=== PATIENT | female | born 2000 | race Caucasian/White ===

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

== ENCOUNTER 2019-06-18 17:55 | Emergency (ER) | payer BC ==
[~2019-06-18] VITALS: Ht 167.6 cm; Wt 50.5 kg
[2019-06-18 17:55] VITALS: BP 130/80
[2019-06-18] MEDS ORDERED: ACETAMINOPHEN 500 MG TAB PO ONE (18:15)
[2019-06-18] MEDS ORDERED: PROZ40CA (19:47)
[2019-06-18 20:33] LABS: INFLUENZA A AMPLIFICATION NEGATIVE (NEGATIVE); INFLUENZA B AMPLIFICATION NEGATIVE (NEGATIVE)
[2019-06-18] MEDS ORDERED: ONDA4TAB6 PO (20:50)
== END 2019-06-18 20:55 | disposition home or self-care (01) ==
LOC: M ED 17:55
DX: K52.9 Noninfective gastroenteritis and colitis, unspecified (principal); E88.9 Metabolic disorder, unspecified; Z79.899 Other long term (current) drug therapy; Z79.3 Long term (current) use of hormonal contraceptives

== ENCOUNTER → 2019-06-25 | Outpatient (REF) | payer BC ==
[~2019-06-25] MED LIST changes: +PROZ40CA
[2019-06-25 12:36] LABS: BASO % 0.4 % (0.0-1.0); EOS # 0.1 10^3/uL (0.0-0.5); EOS % 1.2 % (0.0-3.0); HEMATOCRIT 39.3 % (36.0-47.0); HEMOGLOBIN 11.9 g/dl (12.0-15.5); LYMPH % 40.6 % (24.0-44.0); MEAN CORPUSCULAR HEMOGLOBIN 24.4 pg (27.0-33.0); MEAN CORPUSCULAR HGB CONC 30.3 g/dl (32.0-36.5); MEAN CORPUSCULAR VOLUME 80.5 fl (80.0-96.0); MONO # 0.4 10^3/uL (0.0-0.8); MONO % 8.8 % (0.0-5.0); NEUTROPHILS # 2.4 10^3/uL (1.5-8.5); NEUTROPHILS % 48.6 % (36.0-66.0); PLATELET COUNT, AUTOMATED 377 10^3/uL (150-450); RED BLOOD COUNT 4.88 10^6/uL (4.00-5.40)
[2019-06-25 13:08] LABS: ALBUMIN 3.5 GM/DL (3.2-5.2); ALT/SGPT 65 U/L (12-78); BILIRUBIN,TOTAL 0.3 MG/DL (0.2-1.0); BLOOD UREA NITROGEN 10 MG/DL (7-18); CALCIUM LEVEL 8.5 MG/DL (8.5-10.1); CARBON DIOXIDE LEVEL 26 MEQ/L (21-32); CHLORIDE LEVEL 107 MEQ/L (98-107); CREATININE FOR GFR 0.63 MG/DL (0.55-1.30); FREE T4 1.24 NG/DL (0.78-1.33); GLUCOSE, FASTING 62 MG/DL (70-100); POTASSIUM SERUM 3.9 MEQ/L (3.5-5.1); SODIUM LEVEL 139 MEQ/L (136-145); TOTAL PROTEIN 6.9 GM/DL (6.4-8.2)
[2019-06-25 13:12] LABS: MONO REFLEX EBV VCA IgM NEGATIVE (NEGATIVE)
[2019-06-25 13:42] LABS: TOTAL 25(OH) VITAMIN D 20.7 NG/ML (30.0-100.0)
== END ==
LOC: M SFHCPLAZ 10:04
PROVIDERS: ATTEND Physician Assistant
DX: Z00.00 Encounter for general adult medical examination without abnormal findings (principal); R53.83 Other fatigue

== ENCOUNTER → 2019-11-24 | Outpatient (REF) | payer BC | LOC: M WUC 10:07 | PROVIDERS: ATTEND Nurse Practitioner Family | DX: N39.0 Urinary tract infection, site not specified (principal) ==

== ENCOUNTER → 2020-12-07 | Outpatient (REF) | payer BC | LOC: M SFHCWAGY 17:57 | PROVIDERS: ATTEND Obstetrics & Gynecology | DX: Z12.4 Encounter for screening for malignant neoplasm of cervix (principal) ==

== ENCOUNTER → 2021-02-01 | Outpatient (CLI) | payer BC ==
[2021-02-01 17:38] LABS: HEMATOCRIT 35.8 % (36.0-47.0); HEMOGLOBIN 11.5 g/dl (12.0-15.5); MEAN CORPUSCULAR HEMOGLOBIN 26.4 pg (27.0-33.0); MEAN CORPUSCULAR HGB CONC 32.1 g/dl (32.0-36.5); MEAN CORPUSCULAR VOLUME 82.1 fl (80.0-96.0); PLATELET COUNT, AUTOMATED 270 10^3/uL (150-450); RED BLOOD COUNT 4.36 10^6/uL (4.00-5.40); WHITE BLOOD COUNT 9.1 10^3/uL (4.0-10.0)
[2021-02-01 19:06] LABS: HIV 1&2 SCREEN CENTAUR NEGATIVE (NEGATIVE)
[2021-02-01 19:29] LABS: GC DNA AMPLIFICATION NEGATIVE (NEGATIVE)
== END ==
LOC: M PLALAB 13:33
PROVIDERS: ATTEND Specialist
DX: Z34.01 Encounter for supervision of normal first pregnancy, first trimester (principal)

== ENCOUNTER → 2021-03-01 | Outpatient (CLI) | payer BC | LOC: M PLALAB 15:28 | PROVIDERS: ATTEND Advanced Practice Midwife | DX: Z36.89 Encounter for other specified antenatal screening (principal) ==

== ENCOUNTER → 2021-03-23 | Outpatient (CLI) | payer BC ==
--- NOTE | 2021-03-23 16:35 | REP ---
INDICATION: ANATOMY. COMPARISON: None. TECHNIQUE: Real-time sonographic evaluation of the gravid uterus performed. FINDINGS: Estimated gestational age is20 weeks 6 days, EDC 08/04/2021. Today's measurements indicate appropriate growth. Presentation: Cephalic Placenta posterior, grade 1, without evidence of placenta previa. heart rate is recorded at 150 beats per minute. Amniotic fluid is subjectively normal. Closed cervical length is measured at 3.4 cm. Biometry chart: BPD: 48 mm, 20 weeks 4 days, 44th percentile. HC: 185 mm, 20 weeks 6 days, 50th percentile AC: 150 mm, 20 weeks 1 days, 36th percentile Femur length: 33 mm, 20 weeks 1 days, 34th percentile HC to AC ratio: 1.24, normal range 1.06-1.24. Estimated weight: 344g, 19th percentile. anatomy: Cranium: Grossly normal Lateral Ventricles/Choroid Plexus: There are bilateral choroid plexus cysts, 5 mm in maximum diameter. Posterior Fossa/Cerebellum: Not well visualized. Nose/lips/profile: Not well seen due to position Four chamber heart: Not well seen due to position Right ventricular outflow tract: Not well seen due to position Left ventricular outflow tract: Not well seen due to position Left-sided stomach: Grossly normal Kidneys: Grossly normal Bladder: Grossly normal Cord Insertion: Grossly normal 3 vessel cord: Grossly normal Spine: Grossly normal IMPRESSION: Viable single intrauterine gestation as above. <Electronically signed by Ankur Ball > 03/23/21 [id number]
== END ==
LOC: M WHC 14:20
PROVIDERS: ATTEND Advanced Practice Midwife
DX: Z36.9 Encounter for antenatal screening, unspecified (principal); Z3A.20 20 weeks gestation of pregnancy

== ENCOUNTER → 2021-04-26 | Outpatient (CLI) | payer BC ==
--- NOTE | 2021-04-27 05:10 | REP ---
INDICATION: F/U ANATOMY COMPARISON: 03/23/2021 TECHNIQUE: Transabdominal obstetrical ultrasound with color Doppler evaluation. FINDINGS: Examination demonstrates a single live intrauterine in cephalic presentation. motion is identified by technologist. Placenta is noted posterior and grade 1 without evidence for placenta previa or abruption. Amniotic fluid volume is normal. Cervix appears closed. Selected gestational age: 25 weeks 5 days with [facility] 08/04/2021. Gestational age by current measurements 25 weeks 3 days with [facility] 08/06/2021. FHR equals 143 beats per minute. Estimated weight 806 grams (27thpercentile). Anatomical assessment demonstrates normal structures including choroid plexus, facial profile and facial features, cardiac ventricular outflow tracts, diaphragm and stomach. IMPRESSION: Single live intrauterine in cephalic presentation. Previously noted choroid plexus cysts have resolved. Continued limited evaluation of the heart due to movement and positioning. <Electronically signed by Daniel Georges > 04/27/21 [id number]
== END ==
LOC: M WHC 08:12
PROVIDERS: ATTEND Advanced Practice Midwife
DX: Z36.9 Encounter for antenatal screening, unspecified (principal); Z3A.25 25 weeks gestation of pregnancy

== ENCOUNTER → 2021-04-26 | Outpatient (CLI) | payer BC, SELFPAY ==
[2021-04-26 15:45] LABS: HEMATOCRIT 37.5 % (36.0-47.0); HEMOGLOBIN 12.1 g/dl (12.0-15.5); MEAN CORPUSCULAR HEMOGLOBIN 28.1 pg (27.0-33.0); MEAN CORPUSCULAR HGB CONC 32.3 g/dl (32.0-36.5); PLATELET COUNT, AUTOMATED 342 10^3/uL (150-450); RED BLOOD COUNT 4.31 10^6/uL (4.00-5.40); WHITE BLOOD COUNT 12.2 10^3/uL (4.0-10.0)
[2021-04-26 17:20] LABS: GC DNA AMPLIFICATION NEGATIVE (NEGATIVE)
== END ==
LOC: M PLALAB 10:40
PROVIDERS: ATTEND Advanced Practice Midwife
DX: Z34.82 Encounter for supervision of other normal pregnancy, second trimester (principal); Z3A.21 21 weeks gestation of pregnancy

== ENCOUNTER → 2021-05-09 | Outpatient (CLI) | payer BC ==
--- NOTE | 2021-05-09 13:53 | REP ---
INDICATION: F/U ANATOMY COMPARISON: 04/26/2021 TECHNIQUE: Transabdominal obstetrical ultrasound with color Doppler evaluation. FINDINGS: Examination demonstrates a single live intrauterine in cephalic presentation. motion is identified by technologist. Placenta is noted posterior and grade 1 without evidence for placenta previa or abruption. Amniotic fluid volume is normal. Cervix measures 3.1 cm in length and appears closed.. Selected gestational age: 27 weeks 4 days with [facility] 08/04/2021. Gestational age by current measurements 27 weeks 1 day with [facility] 08/07/2021. FHR equals 153 beats per minute. Estimated weight 1025 grams (22percentile). Anatomical assessment demonstrates normal structures including heart and cardiac ventricular outflow tracts. IMPRESSION: Single live intrauterine in cephalic presentation. In conjunction with prior examination anatomical assessment is complete and normal. <Electronically signed by Daniel Georges > 05/09/21 [id number]
== END ==
LOC: M WHC 12:33
PROVIDERS: ATTEND Obstetrics & Gynecology
DX: Z36.2 Encounter for other antenatal screening follow-up (principal); Z3A.27 27 weeks gestation of pregnancy

== ENCOUNTER → 2021-06-27 | Outpatient (REF) | payer BC | LOC: M SFHCWAGY 16:58 | PROVIDERS: ATTEND Obstetrics & Gynecology | DX: Z34.93 Encounter for supervision of normal pregnancy, unspecified, third trimester (principal); Z3A.35 35 weeks gestation of pregnancy ==

== ENCOUNTER 2021-07-03 03:06 | Outpatient (CLI) | payer BC ==
[~2021-07-03] VITALS: Ht 167.6 cm; Wt 74.4 kg
[2021-07-03 03:32] VITALS: BP 137/76
[2021-07-03] MEDS ORDERED: PRENTAB9 PO (03:35)
[2021-07-03] MEDS ORDERED: HOME MED LIST COMPLETE! XX SCH (03:55)
[2021-07-03 04:33] VITALS: BP 108/51
[2021-07-03 05:06] VITALS: BP 118/65
[2021-07-03 06:19] VITALS: BP 130/67
[2021-07-03] MEDS ORDERED: BETAMETHASONE SOLUSPAN 6MG/ML 5ML VIAL (J0702 PER 3MG) IM ONE (06:25)
[2021-07-03 07:08] VITALS: BP 127/70
== END 2021-07-03 09:27 | disposition home or self-care (01) ==
LOC: M LDO 03:06
PROVIDERS: ATTEND Specialist
DX: O60.03 Preterm labor without delivery, third trimester (principal); Z3A.35 35 weeks gestation of pregnancy
CPT/HCPCS: 59025; 96372; G0378; G0463; J0702

== ENCOUNTER 2021-07-30 13:43 | Inpatient (IN) | payer BC ==
[2021-07-30] VITALS (36 sets, daily range): BP systolic 94–143; BP diastolic 49–83
[~2021-07-30] VITALS: Ht 167.6 cm; Wt 76.4 kg
[~2021-07-30 13:43] MED LIST changes: +PRENTAB9 PO
[2021-07-30] MEDS ORDERED: TRANEXAMIC ACID INJection 1,000 MG in NS 100 ML IV PRN (14:25)
[2021-07-30] MEDS ORDERED: OXYTOCIN DRIP 30 UNITS in IV 1 EA IV PRN ×4 (14:25)
[2021-07-30] MEDS ORDERED: LACTATED RINGER'S 1000 ML IV PRN ×2 (14:25→22:35)
[2021-07-30] MEDS ORDERED: LR 1,000 ML IV SCH (14:25)
[2021-07-30] MEDS ORDERED: METHYLERGONOVINE MALEATE 0.2 MG/ML VIAL (J2210) IM PRN (14:25)
[2021-07-30] MEDS ORDERED: CARBOPROST TROMETHAMINE 250 MCG/ML AMP IM PRN (14:25)
[2021-07-30] MEDS ORDERED: OXYTOCIN DRIP 30 UNITS in IV 1 EA IV SCH (14:25)
[2021-07-30] MEDS ORDERED: LIDOCAINE 1% MDV 20ML VIAL INFIL PRN (14:25)
[2021-07-30 15:01] LABS: HEMATOCRIT 39.9 % (36.0-47.0); HEMOGLOBIN 13.3 g/dl (12.0-15.5); MEAN CORPUSCULAR HEMOGLOBIN 27.9 pg (27.0-33.0); MEAN CORPUSCULAR HGB CONC 33.3 g/dl (32.0-36.5); MEAN CORPUSCULAR VOLUME 83.6 fl (80.0-96.0); PLATELET COUNT, AUTOMATED 298 10^3/uL (150-450); RED BLOOD COUNT 4.77 10^6/uL (4.00-5.40); WHITE BLOOD COUNT 10.8 10^3/uL (4.0-10.0)
[2021-07-30] MEDS ORDERED: HOME MED LIST COMPLETE! XX SCH (15:30)
[2021-07-30 15:54] LABS: ALBUMIN 2.8 GM/DL (3.2-5.2); ALT/SGPT 26 U/L (12-78); BILIRUBIN,TOTAL 0.2 MG/DL (0.2-1.0); BLOOD UREA NITROGEN 16 MG/DL (7-18); CALCIUM LEVEL 8.9 MG/DL (8.5-10.1); CARBON DIOXIDE LEVEL 22 MEQ/L (21-32); CHLORIDE LEVEL 107 MEQ/L (98-107); CREATININE FOR GFR 0.84 MG/DL (0.55-1.30); GLOMERULAR FILTRATION RATE > 60.0 (>60); GLUCOSE, FASTING 66 MG/DL (70-100); POTASSIUM SERUM 4.5 MEQ/L (3.5-5.1); SODIUM LEVEL 137 MEQ/L (136-145); TOTAL PROTEIN 6.4 GM/DL (6.4-8.2)
[2021-07-30] MEDS ORDERED: FENTANYL 2MCG/ML ROPIVACAINE 0.2% IN 0.9% NACL 100ML IVBAG As Ordered ONE (22:10)
[2021-07-30] MEDS ORDERED: REFLB XX ONE (22:10)
[2021-07-30] MEDS ORDERED: EPIDURAL/PCA KEYS XX PRN (22:35)
[2021-07-30] MEDS ORDERED: EPIDURAL COMMENT XX SCH (22:35)
[2021-07-30] MEDS ORDERED: ePHEDrine SULFATE 25 MG/5 ML(5MG/ML) SYRINGE IV PRN (22:35)
[2021-07-30] MEDS ORDERED: FENTANYL/ROPIVACAINE/NACL BAG 100 ML EPIDURAL SCH (22:35)
[2021-07-30] MEDS ORDERED: ONDANSETRON 4MG/2ML VIAL IV PRN (22:35)
[2021-07-30] MEDS ORDERED: NALOXONE INJ 0.4MG/1ML VIAL (J2310 PER 1MG) IV PRN (22:35)
[2021-07-30] MEDS ORDERED: REFRIGERATOR IV KEYS XX PRN (22:35)
[2021-07-30] MEDS ORDERED: diphenhydrAMINE 50MG/ML VIAL (J1200) IV PRN (22:35)
[2021-07-31] VITALS (17 sets, daily range): BP systolic 106–139; BP diastolic 53–78
[2021-07-31] MEDS ORDERED: DOCUSATE SODIUM 100MG CAPSULE PO PRN (02:15)
[2021-07-31] MEDS ORDERED: RHOGAM 300 MCG (1500 IU) INJ (J2790) IM SCH (02:15)
[2021-07-31] MEDS ORDERED: ACETAMINOPHEN 500 MG TAB PO PRN (02:15)
[2021-07-31] MEDS ORDERED: MEASLES,MUMPS,RUBELLA VACCINE INJ (MMR-II) (90707) SC SCH (02:15)
[2021-07-31] MEDS ORDERED: IBUPROFEN 600MG TAB PO PRN (02:15)
[2021-07-31] MEDS ORDERED: DIBUCAINE 1% OINTMENT 30GM TOP PRN (02:15)
[2021-07-31] MEDS ORDERED: METHYLERGONOVINE MALEATE 0.2 MG TAB PO PRN (02:15)
[2021-07-31] MEDS: PRENATAL VITAMINS CHEWABLE TABLET PO SCH (08:58)
[2021-08-01 06:03] VITALS: BP 121/58
[2021-08-01 06:17] LABS: HEMATOCRIT 34.6 % (36.0-47.0); HEMOGLOBIN 11.8 g/dl (12.0-15.5); MEAN CORPUSCULAR HEMOGLOBIN 28.5 pg (27.0-33.0); MEAN CORPUSCULAR HGB CONC 34.1 g/dl (32.0-36.5); MEAN CORPUSCULAR VOLUME 83.6 fl (80.0-96.0); PLATELET COUNT, AUTOMATED 185 10^3/uL (150-450); RED BLOOD COUNT 4.14 10^6/uL (4.00-5.40); WHITE BLOOD COUNT 10.7 10^3/uL (4.0-10.0)
[2021-08-01] MEDS: PRENATAL VITAMINS CHEWABLE TABLET PO SCH (07:30)
[2021-08-01 18:15] VITALS: BP 107/54
[2021-08-02 06:09] VITALS: BP 123/71
[2021-08-02] MEDS: PRENATAL VITAMINS CHEWABLE TABLET PO SCH (08:37)
[2021-08-02] MEDS ORDERED: PROZ20CA11 PO (13:23)
== END 2021-08-02 15:30 | disposition home or self-care (01) | DRG 560 ==
LOC: M LDO 13:43 → M LDI 14:15 → M OBS 07-31 04:25
PROVIDERS: ADMIT Obstetrics & Gynecology; ATTEND Obstetrics & Gynecology
PROC: 10E0XZZ Delivery of Products of Conception, External Approach (ICD-10-PCS; principal; 2021-07-31)
PROC: F13Z0ZZ Hearing Screening Assessment (ICD-10-PCS; 2021-07-31)
DX: O42.02 Full-term premature rupture of membranes, onset of labor within 24 hours of rupture (principal); Z37.0 Single live birth; Z3A.39 39 weeks gestation of pregnancy; O32.6XX0 Maternal care for compound presentation, not applicable or unspecified; O70.0 First degree perineal laceration during delivery

== ENCOUNTER 2021-09-28 09:56 | Inpatient (IN) | payer BC ==
[~2021-09-28] VITALS: Ht 172.7 cm; Wt 65.9 kg
[~2021-09-28 09:56] MED LIST changes: +PROZ20CA11 PO
[2021-09-28] MEDS ORDERED: TRI-TAB16 PO (10:09)
[2021-09-28 11:21] LABS: HEMATOCRIT 38.7 % (36.0-47.0); HEMOGLOBIN 12.8 g/dl (12.0-15.5); MEAN CORPUSCULAR HEMOGLOBIN 28.6 pg (27.0-33.0); MEAN CORPUSCULAR HGB CONC 33.1 g/dl (32.0-36.5); MEAN CORPUSCULAR VOLUME 86.6 fl (80.0-96.0); PLATELET COUNT, AUTOMATED 339 10^3/uL (150-450); RED BLOOD COUNT 4.47 10^6/uL (4.00-5.40)
[2021-09-28 11:54] LABS: AMPHETAMINES LEVEL URINE NEGATIVE (NEGATIVE); BARBITURATES URINE NEGATIVE (NEGATIVE); BENZODIAZEPINES URINE NEGATIVE (NEGATIVE); CANNABINOIDS URINE NEGATIVE (NEGATIVE); COCAINE METABOLITE URINE NEGATIVE (NEGATIVE); METHADONE URINE NEGATIVE (NEGATIVE); OPIATES URINE NEGATIVE (NEGATIVE); PHENCYCLIDINE URINE NEGATIVE (NEGATIVE)
[2021-09-28 11:56] LABS: RSV AMPLIFICATION NEGATIVE (NEGATIVE)
[2021-09-28 11:59] LABS: HCG, SERUM QUALITATIVE NEGATIVE (NEGATIVE)
[2021-09-28 12:03] LABS: ACETAMINOPHEN LEVEL < 2.0 UG/ML (10.0-30.0); ALT/SGPT 32 U/L (12-78); BILIRUBIN,DIRECT 0.2 MG/DL (0.0-0.2); BILIRUBIN,TOTAL 0.3 MG/DL (0.2-1.0); BLOOD UREA NITROGEN 12 MG/DL (7-18); CALCIUM LEVEL 9.1 MG/DL (8.5-10.1); CARBON DIOXIDE LEVEL 26 MEQ/L (21-32); CHLORIDE LEVEL 106 MEQ/L (98-107); CREATININE FOR GFR 0.82 MG/DL (0.55-1.30); ETHYL ALCOHOL (ETHANOL) 0.003 % (0.000-0.010); GLOMERULAR FILTRATION RATE > 60.0 (>60); GLUCOSE, FASTING 92 MG/DL (70-100); POTASSIUM SERUM 3.8 MEQ/L (3.5-5.1); SALICYLATE LEVEL < 1.7 MG/DL (5.0-30.0); SODIUM LEVEL 138 MEQ/L (136-145); TOTAL PROTEIN 7.4 GM/DL (6.4-8.2)
[2021-09-28] MEDS ORDERED: FLUO20CA22 PO (15:10)
[2021-09-28] MEDS ORDERED: HOME MED LIST COMPLETE! XX SCH (15:15)
[2021-09-28] MEDS ORDERED: MAALOX 30 ML SUSP *UDC PO PRN (22:40)
[2021-09-28] MEDS ORDERED: ACETAMINOPHEN TAB 650MG DOSE (2X325MG) PO PRN (22:40)
[2021-09-28] MEDS ORDERED: MOM 30ML SUSPENSION UDC PO PRN (22:40)
[2021-09-28 23:47] VITALS: BP 125/61
[2021-09-29] MEDS: OLANZapine ORAL DISINTEGRATING TAB 5MG PO PRN (06:17)
[2021-09-29] MEDS: OLANZapine 5 MG TAB PO SCH ×2 (10:53→20:44)
[2021-09-29 17:35] VITALS: BP 121/59
[2021-09-30] MEDS: traZODone 50 MG TAB PO PRN (00:56)
[2021-09-30] MEDS: OLANZapine ORAL DISINTEGRATING TAB 5MG PO PRN (01:58)
[2021-09-30 06:48] VITALS: BP 122/62
[2021-09-30] MEDS: OLANZapine 5 MG TAB PO SCH ×3 (09:00→22:03)
[2021-09-30] MEDS ORDERED: NIX CREME RINSE 1% 60 ML KIT TOP ONE (19:15)
[2021-10-01] MEDS: traZODone 50 MG TAB PO PRN ×2 (00:53→23:06)
[2021-10-01] MEDS: OLANZapine 5 MG TAB PO SCH ×2 (10:44→22:06)
[2021-10-01 17:41] LABS: BLOOD UREA NITROGEN 16 MG/DL (7-18); CARBON DIOXIDE LEVEL 27 MEQ/L (21-32); CHLORIDE LEVEL 108 MEQ/L (98-107); CREATININE FOR GFR 0.83 MG/DL (0.55-1.30); GLOMERULAR FILTRATION RATE > 60.0 (>60); GLUCOSE, FASTING 97 MG/DL (70-100); POTASSIUM SERUM 4.3 MEQ/L (3.5-5.1); SODIUM LEVEL 141 MEQ/L (136-145)
[2021-10-01 17:42] LABS: ALT/SGPT 39 U/L (12-78); BILIRUBIN,TOTAL 0.3 MG/DL (0.2-1.0); CALCIUM LEVEL 9.6 MG/DL (8.5-10.1); TOTAL PROTEIN 7.7 GM/DL (6.4-8.2)
[2021-10-02 06:29] VITALS: BP 138/69
[2021-10-02] MEDS ORDERED: BENZTROPINE 1 MG TAB PO PRN (09:30)
[2021-10-02] MEDS: OLANZapine 5 MG TAB PO SCH (10:35)
[2021-10-02 19:20] VITALS: BP 144/64
[2021-10-02] MEDS ORDERED: OLANZapine 10 MG TAB PO SCH (21:00)
[2021-10-03 07:11] VITALS: BP 131/74
[2021-10-03] MEDS: OLANZapine 5 MG TAB PO SCH (08:36)
[2021-10-03] MEDS ORDERED: OLANZapine 5 MG TAB PO SCH (09:00)
[2021-10-03 19:19] VITALS: BP 117/69
[2021-10-03] MEDS: PALIPERIDONE 3 MG ER TAB (INVEGA) PO SCH (21:50)
[2021-10-04 06:50] VITALS: BP 120/56
[2021-10-04] MEDS: PALIPERIDONE 3 MG ER TAB (INVEGA) PO SCH ×2 (09:38→20:44)
[2021-10-04] MEDS: OLANZapine 5 MG TAB PO SCH (09:38)
[2021-10-04] MEDS: FLUoxetine 20MG CAP PO SCH (09:38)
[2021-10-04 17:56] VITALS: BP 136/69
[2021-10-05 06:08] VITALS: BP 140/71
[2021-10-05] MEDS: FLUoxetine 20MG CAP PO SCH (08:16)
[2021-10-05] MEDS: OLANZapine 5 MG TAB PO SCH (08:16)
[2021-10-05] MEDS: PALIPERIDONE 3 MG ER TAB (INVEGA) PO SCH ×2 (08:16→20:39)
[2021-10-06 06:39] VITALS: BP 137/60
[2021-10-06] MEDS: PALIPERIDONE 3 MG ER TAB (INVEGA) PO SCH ×2 (09:11→20:13)
[2021-10-06] MEDS: FLUoxetine 20MG CAP PO SCH (09:11)
[2021-10-06] MEDS: OLANZapine 5 MG TAB PO SCH (09:11)
[2021-10-06] MEDS ORDERED: NIX CREME RINSE 1% 60 ML KIT TOP ONE (10:00)
[2021-10-06 18:00] VITALS: BP 132/55
[2021-10-07 06:00] VITALS: BP 119/70
[2021-10-07] MEDS: PALIPERIDONE 3 MG ER TAB (INVEGA) PO SCH ×2 (08:16→20:17)
[2021-10-07] MEDS: OLANZapine 5 MG TAB PO SCH (08:16)
[2021-10-07] MEDS: FLUoxetine 20MG CAP PO SCH (08:17)
[2021-10-08 06:44] VITALS: BP 122/63
[2021-10-08] MEDS: OLANZapine 5 MG TAB PO SCH (09:02)
[2021-10-08] MEDS: PALIPERIDONE 3 MG ER TAB (INVEGA) PO SCH ×2 (09:02→20:38)
[2021-10-08] MEDS: FLUoxetine 20MG CAP PO SCH (09:02)
[2021-10-08 18:00] VITALS: BP 105/76
[2021-10-09 06:00] VITALS: BP 109/58
[2021-10-09] MEDS: FLUoxetine 20MG CAP PO SCH (08:15)
[2021-10-09] MEDS: OLANZapine 5 MG TAB PO SCH (08:15)
[2021-10-09] MEDS: PALIPERIDONE 3 MG ER TAB (INVEGA) PO SCH (08:15)
[2021-10-09] MEDS ORDERED: FLUO20CA22 PO (09:54)
[2021-10-09] MEDS ORDERED: PALI1TAB2 PO (09:54)
== END 2021-10-09 11:35 | disposition home or self-care (01) | DRG 750 ==
LOC: M ED 09:56 → M ED INP 09:57 → M PSY 23:38
PROVIDERS: ADMIT Psychiatry & Neurology Psychiatry; ATTEND Psychiatry & Neurology Psychiatry
DX: F20.9 Schizophrenia, unspecified (principal); F29 Unspecified psychosis not due to a substance or known physiological condition; F25.9 Schizoaffective disorder, unspecified; Z91.14 Patient's other noncompliance with medication regimen; Z91.040 Latex allergy status

== ENCOUNTER → 2022-03-30 | Outpatient (CLI) | payer BC ==
[~2022-03-30] MED LIST changes: +FLUO20CA22 PO; +PALI1TAB2 PO; +TRI-TAB16 PO
[2022-03-30 17:54] LABS: HEMATOCRIT 39.8 % (36.0-47.0); HEMOGLOBIN 12.7 g/dl (12.0-15.5); MEAN CORPUSCULAR HEMOGLOBIN 27.2 pg (27.0-33.0); MEAN CORPUSCULAR HGB CONC 31.9 g/dl (32.0-36.5); MEAN CORPUSCULAR VOLUME 85.2 fl (80.0-96.0); PLATELET COUNT, AUTOMATED 361 10^3/uL (150-450); RED BLOOD COUNT 4.67 10^6/uL (4.00-5.40)
[2022-03-30 19:40] LABS: BLOOD UREA NITROGEN 10 MG/DL (7-18); CALCIUM LEVEL 9.7 MG/DL (8.5-10.1); CARBON DIOXIDE LEVEL 27 MEQ/L (21-32); CHLORIDE LEVEL 102 MEQ/L (98-107); CREATININE FOR GFR 0.72 MG/DL (0.55-1.30); GLOMERULAR FILTRATION RATE > 60.0 (>60); GLUCOSE, FASTING 85 MG/DL (70-100); POTASSIUM SERUM 3.9 MEQ/L (3.5-5.1); SODIUM LEVEL 136 MEQ/L (136-145)
== END ==
LOC: M PLALAB 16:19
PROVIDERS: ATTEND Family Medicine
DX: R42 Dizziness and giddiness (principal)

== ENCOUNTER → 2022-09-27 | Outpatient (REF) | payer BC ==
[2022-09-27 15:16] LABS: GC DNA AMPLIFICATION NEGATIVE (NEGATIVE)
== END ==
LOC: M SFHCPLAZ 12:57
PROVIDERS: ATTEND Family Medicine
DX: Z11.9 Encounter for screening for infectious and parasitic diseases, unspecified (principal)

== ENCOUNTER 2022-11-17 16:04 | Emergency (ER) | payer BC ==
[~2022-11-17] VITALS: Ht 167.6 cm; Wt 56.7 kg
[2022-11-17 16:04] VITALS: TEMP 98.2
[2022-11-17 17:33] LABS: URINE PREG TEST NEGATIVE (NEGATIVE)
[2022-11-17 19:07] LABS: GC DNA AMPLIFICATION NEGATIVE (NEGATIVE)
[2022-11-17] MEDS ORDERED: DOXY-443 PO (19:26)
[2022-11-17 19:56] VITALS: BP 123/59; O2SAT 98
== END 2022-11-17 19:58 | disposition home or self-care (01) ==
LOC: M ED 16:04
DX: N72 Inflammatory disease of cervix uteri (principal); A74.9 Chlamydial infection, unspecified; Z91.040 Latex allergy status; Z79.899 Other long term (current) drug therapy

== ENCOUNTER → 2022-12-21 | Outpatient (REF) | payer BC ==
[~2022-12-21] MED LIST changes: +DOXY-443 PO
== END ==
LOC: M PLALAB 12:59
PROVIDERS: ATTEND Obstetrics & Gynecology
DX: Z12.4 Encounter for screening for malignant neoplasm of cervix (principal)

== ENCOUNTER → 2023-01-29 | Outpatient (REF) | payer BC ==
[2023-01-29 16:29] LABS: GC DNA AMPLIFICATION NEGATIVE (NEGATIVE)
== END ==
LOC: M SFHCPLAZ 13:40
PROVIDERS: ATTEND Family Medicine
DX: A74.9 Chlamydial infection, unspecified (principal)

== ENCOUNTER → 2023-04-02 | Outpatient (REF) | payer BC ==
[~2023-04-02] MED LIST changes: +AMOX875T2 PO; +KETO10TAB PO
[2023-04-02 19:51] LABS: CHLAMYDIA DNA AMPLIFICATION NEGATIVE (NEGATIVE); GC DNA AMPLIFICATION NEGATIVE (NEGATIVE)
== END ==
LOC: M SFHCPLAZ 17:16
PROVIDERS: ATTEND Family Medicine
DX: A74.9 Chlamydial infection, unspecified (principal)

== ENCOUNTER 2023-04-25 19:20 | Emergency (ER) | payer BC ==
[~2023-04-25] VITALS: Ht 172.7 cm; Wt 54.5 kg
[2023-04-25 20:32] LABS: RSV AMPLIFICATION NEGATIVE (NEGATIVE)
[2023-04-25] MEDS ORDERED: ONDANSETRON 4MG 2ML VIAL IV ONE (20:45)
[2023-04-25] MEDS ORDERED: NS 1,640 ML in IV 1 EA IV ONE (20:45)
[2023-04-25] MEDS ORDERED: cefTRIAXone SOD 1 GM in D5W MINI-BAG PLUS 50 ML IV ONE (20:45)
[2023-04-25] MEDS ORDERED: ACETAMINOPHEN TAB 650MG DOSE (2X325MG) PO ONE (21:10)
[2023-04-25 21:14] LABS: BASO % 0.1 % (0.0-1.0); HEMATOCRIT 37.6 % (36.0-47.0); HEMOGLOBIN 12.5 g/dl (12.0-15.5); LYMPH # 1.1 10^3/uL (1.5-5.0); LYMPH % 5.5 % (24.0-44.0); MEAN CORPUSCULAR HEMOGLOBIN 26.6 pg (27.0-33.0); MEAN CORPUSCULAR HGB CONC 33.2 g/dl (32.0-36.5); MONO # 1.1 10^3/uL (0.0-0.8); MONO % 5.5 % (2.0-8.0); NEUTROPHILS # 18.1 10^3/uL (1.5-8.5); NEUTROPHILS % 88.4 % (36.0-66.0); PLATELET COUNT, AUTOMATED 321 10^3/uL (150-450); WHITE BLOOD COUNT 20.5 10^3/uL (4.0-10.0)
[2023-04-25 21:30] LABS: ALKALINE PHOSPHATASE 84 U/L (46-116); ALT/SGPT 28 U/L (7.0-40); AST/SGOT 19 U/L (<34); BILIRUBIN,TOTAL 0.6 MG/DL (0.3-1.2); BLOOD UREA NITROGEN 14 MG/DL (9-23); CALCIUM LEVEL 9.6 MG/DL (8.5-10.1); CARBON DIOXIDE LEVEL 25 MMOL/L (20-31); CHLORIDE LEVEL 102 MMOL/L (98-107); CREATININE FOR GFR 0.73 MG/DL (0.55-1.30); GLOMERULAR FILTRATION RATE > 60.0 (>60); GLUCOSE, FASTING 105 MG/DL (60-100); POTASSIUM SERUM 3.7 MMOL/L (3.5-5.1); SODIUM LEVEL 136 MMOL/L (136-145); TOTAL PROTEIN 7.4 G/DL (5.7-8.2)
[2023-04-25] MEDS ORDERED: ISOVUE-370 76% 100ML VIAL As Ordered ONE (21:34)
[2023-04-25 23:41] VITALS: BP 127/76; TEMP 98.2; O2SAT 99
[2023-04-25] MEDS ORDERED: SULF1TAB23 PO (23:41)
[2023-04-26] MEDS ORDERED: FLUO20CA22 PO (23:19)
[2023-04-27] MEDS ORDERED: CEFD300CAP PO (10:36)
== END 2023-04-26 00:01 | disposition home or self-care (01) ==
LOC: M ED 19:20
DX: N10 Acute pyelonephritis (principal); F17.200 Nicotine dependence, unspecified, uncomplicated; Z91.040 Latex allergy status; Z79.2 Long term (current) use of antibiotics; Z79.899 Other long term (current) drug therapy
CPT/HCPCS: 74177; 80053; 81001; 83605; 84702; 85025; 87040; 87088; 87186; 87631; 96365; 96375; 99284; J0696; J2405; Q9967

== ENCOUNTER 2023-04-26 18:34 | Inpatient (IN) | payer BC ==
[~2023-04-26] VITALS: Ht 172.7 cm; Wt 55.5 kg
[~2023-04-26 18:34] MED LIST changes: +SULF1TAB23 PO
[2023-04-26 21:10] LABS: BASO % 0.1 % (0.0-1.0); HEMOGLOBIN 10.7 g/dl (12.0-15.5); LYMPH # 0.7 10^3/uL (1.5-5.0); MEAN CORPUSCULAR HEMOGLOBIN 26.9 pg (27.0-33.0); MEAN CORPUSCULAR HGB CONC 33.4 g/dl (32.0-36.5); MEAN CORPUSCULAR VOLUME 80.4 fl (80.0-96.0); MONO % 8.3 % (2.0-8.0); NEUTROPHILS # 20.5 10^3/uL (1.5-8.5); NEUTROPHILS % 86.6 % (36.0-66.0); PLATELET COUNT, AUTOMATED 226 10^3/uL (150-450); RED BLOOD COUNT 3.98 10^6/uL (4.00-5.40); WHITE BLOOD COUNT 23.7 10^3/uL (4.0-10.0)
[2023-04-26 21:41] LABS: BLOOD UREA NITROGEN 7 MG/DL (9-23); CALCIUM LEVEL 8.1 MG/DL (8.5-10.1); CARBON DIOXIDE LEVEL 24 MMOL/L (20-31); CHLORIDE LEVEL 106 MMOL/L (98-107); CREATININE FOR GFR 0.63 MG/DL (0.55-1.30); GLOMERULAR FILTRATION RATE > 60.0 (>60); GLUCOSE, FASTING 106 MG/DL (60-100); POTASSIUM SERUM 4.1 MMOL/L (3.5-5.1); SODIUM LEVEL 137 MMOL/L (136-145)
[2023-04-26] MEDS ORDERED: NS 1,000 ML IV ONE (22:00)
[2023-04-26] MEDS ORDERED: ACETAMINOPHEN 325 MG TAB PO ONE (22:00)
[2023-04-26] MEDS ORDERED: ONDANSETRON 4MG 2ML VIAL IV ONE (22:00)
[2023-04-26] MEDS ORDERED: cefTRIAXone SOD 1 GM in D5W MINI-BAG PLUS 50 ML IV ONE (22:00)
[2023-04-26] MEDS ORDERED: FLUO20CA22 PO (23:19)
[2023-04-26] MEDS ORDERED: HOME MED LIST COMPLETE! XX SCH (23:20)
[2023-04-27] MEDS ORDERED: ACETAMINOPHEN TAB 650MG DOSE (2X325MG) PO PRN
[2023-04-27] MEDS ORDERED: ONDANSETRON 4MG 2ML VIAL IV PRN
[2023-04-27] MEDS ORDERED: NS 1,000 ML IV ONE (00:10)
[2023-04-27 01:56] VITALS: BP 110/56; TEMP 97.6; O2SAT 98
[2023-04-27 06:13] VITALS: BP 111/55; TEMP 98.1; O2SAT 99
[2023-04-27 08:00] LABS: BLOOD UREA NITROGEN 9 MG/DL (9-23); CALCIUM LEVEL 8.6 MG/DL (8.5-10.1); CARBON DIOXIDE LEVEL 21 MMOL/L (20-31); CHLORIDE LEVEL 105 MMOL/L (98-107); CREATININE FOR GFR 0.62 MG/DL (0.55-1.30); GLOMERULAR FILTRATION RATE > 60.0 (>60); GLUCOSE, FASTING 85 MG/DL (60-100); POTASSIUM SERUM 3.9 MMOL/L (3.5-5.1); SODIUM LEVEL 137 MMOL/L (136-145)
[2023-04-27 08:25] LABS: BASO % 0.1 % (0.0-1.0); HEMATOCRIT 32.1 % (36.0-47.0); HEMOGLOBIN 10.3 g/dl (12.0-15.5); LYMPH # 1.4 10^3/uL (1.5-5.0); LYMPH % 5.8 % (24.0-44.0); MEAN CORPUSCULAR HEMOGLOBIN 26.8 pg (27.0-33.0); MEAN CORPUSCULAR HGB CONC 32.1 g/dl (32.0-36.5); MEAN CORPUSCULAR VOLUME 83.6 fl (80.0-96.0); MONO # 1.5 10^3/uL (0.0-0.8); MONO % 6.3 % (2.0-8.0); NEUTROPHILS # 20.3 10^3/uL (1.5-8.5); NEUTROPHILS % 86.6 % (36.0-66.0); PLATELET COUNT, AUTOMATED 244 10^3/uL (150-450); RED BLOOD COUNT 3.84 10^6/uL (4.00-5.40); WHITE BLOOD COUNT 23.5 10^3/uL (4.0-10.0)
[2023-04-27] MEDS ORDERED: FLUoxetine 20MG CAP PO SCH (09:00)
[2023-04-27] MEDS ORDERED: CEFD300CAP PO (10:36)
[2023-04-27 14:14] VITALS: BP 105/54; TEMP 99.3; O2SAT 98
[2023-04-27] MEDS ORDERED: cefTRIAXone SOD 1 GM in D5W MINI-BAG PLUS 50 ML IV SCH ×2 (16:00→23:00)
== END 2023-04-27 15:50 | disposition home or self-care (01) | DRG 720 ==
LOC: M ED 18:34 → M ED INP 22:12 → ENRESERV 04-27 01:17 → M MS5PR 04-27 01:54
PROVIDERS: ADMIT Internal Medicine; ATTEND Internal Medicine Nephrology
DX: A41.9 Sepsis, unspecified organism (principal); N10 Acute pyelonephritis; N39.0 Urinary tract infection, site not specified; F17.210 Nicotine dependence, cigarettes, uncomplicated; Z79.899 Other long term (current) drug therapy; Z20.822 Contact with and (suspected) exposure to COVID-19

== ENCOUNTER 2023-06-07 11:41 | Emergency (ER) | payer BC ==
[~2023-06-07] VITALS: Ht 172.7 cm; Wt 54.5 kg
[~2023-06-07 11:41] MED LIST changes: +CEFD300CAP PO
[2023-06-07] MEDS ORDERED: ACET-683 PO (11:57)
[2023-06-07] MEDS ORDERED: ONDANSETRON 4MG 2ML VIAL IV ONE (13:10)
[2023-06-07] MEDS ORDERED: NS 1,000 ML IV ONE (13:10)
[2023-06-07] MEDS ORDERED: cefTRIAXone SOD 1 GM in D5W MINI-BAG PLUS 50 ML IV ONE (13:10)
[2023-06-07 13:14] LABS: BASO % 0.1 % (0.0-1.0); HEMATOCRIT 33.5 % (36.0-47.0); HEMOGLOBIN 10.9 g/dl (12.0-15.5); LYMPH # 0.8 10^3/uL (1.5-5.0); MEAN CORPUSCULAR HEMOGLOBIN 26.2 pg (27.0-33.0); MEAN CORPUSCULAR HGB CONC 32.5 g/dl (32.0-36.5); MEAN CORPUSCULAR VOLUME 80.5 fl (80.0-96.0); MONO # 1.1 10^3/uL (0.0-0.8); MONO % 8.2 % (2.0-8.0); NEUTROPHILS # 11.7 10^3/uL (1.5-8.5); NEUTROPHILS % 85.3 % (36.0-66.0); PLATELET COUNT, AUTOMATED 247 10^3/uL (150-450); RED BLOOD COUNT 4.16 10^6/uL (4.00-5.40); WHITE BLOOD COUNT 13.7 10^3/uL (4.0-10.0)
[2023-06-07 13:32] LABS: LIPASE 31 U/L (12-53)
[2023-06-07 13:34] LABS: ALBUMIN 3.4 G/DL (3.2-5.2); ALKALINE PHOSPHATASE 62 U/L (46-116); ALT/SGPT 19 U/L (7.0-40); AST/SGOT 13 U/L (<34); BILIRUBIN,DIRECT 0.2 MG/DL (<0.4); BILIRUBIN,TOTAL 0.4 MG/DL (0.3-1.2); BLOOD UREA NITROGEN 8 MG/DL (9-23); CALCIUM LEVEL 8.3 MG/DL (8.5-10.1); CARBON DIOXIDE LEVEL 25 MMOL/L (20-31); CHLORIDE LEVEL 102 MMOL/L (98-107); CREATININE FOR GFR 0.71 MG/DL (0.55-1.30); GLOMERULAR FILTRATION RATE > 60.0 (>60); GLUCOSE, FASTING 98 MG/DL (60-100); POTASSIUM SERUM 4.1 MMOL/L (3.5-5.1); SODIUM LEVEL 132 MMOL/L (136-145); TOTAL PROTEIN 6.5 G/DL (5.7-8.2)
[2023-06-07 13:38] LABS: HCG, SERUM QUALITATIVE NEGATIVE (NEGATIVE)
[2023-06-07] MEDS ORDERED: NS 500 ML IV ONE (14:30)
[2023-06-07] MEDS ORDERED: KETOROLAC 30 MG/ML 1ML VIAL IV ONE (15:25)
[2023-06-07 15:57] LABS: CHLAMYDIA DNA AMPLIFICATION NEGATIVE (NEGATIVE); GC DNA AMPLIFICATION NEGATIVE (NEGATIVE)
[2023-06-07] MEDS: GASTROGRAFIN SOLUTION 30ML PO SCH ×2 (16:11→16:44)
[2023-06-07] MEDS ORDERED: ISOVUE-370 76% 100ML VIAL As Ordered ONE (17:57)
[2023-06-07 19:30] VITALS: BP 111/64; O2SAT 98
[2023-06-07] MEDS ORDERED: ACETAMINOPHEN 500 MG TAB PO ONE (19:30)
[2023-06-07] MEDS ORDERED: CIPR500T39 PO (19:31)
[2023-06-07 20:17] VITALS: TEMP 99.8
== END 2023-06-07 20:36 | disposition home or self-care (01) ==
LOC: M ED 11:41
DX: N10 Acute pyelonephritis (principal); F41.9 Anxiety disorder, unspecified; F32.9 Major depressive disorder, single episode, unspecified; F17.200 Nicotine dependence, unspecified, uncomplicated; Z91.040 Latex allergy status
CPT/HCPCS: 74177; 76856; 80048; 80076; 81000; 81015; 83605; 83690; 84703; 85025; 87088; 87186; 87210; 87661; 87810; 87850; 93976; 96365; 96375; 99284; J0696; J1885; J2405; Q9963; Q9967

== ENCOUNTER 2023-06-08 12:32 | Emergency (ER) | payer BC ==
[~2023-06-08] VITALS: Ht 172.7 cm; Wt 54.5 kg
[~2023-06-08 12:32] MED LIST changes: +ACET-683 PO; +CIPR500T39 PO
[2023-06-08] MEDS ORDERED: LIDOCAINE 1% SDV 5ML VIAL DILUENT ONE (13:55)
[2023-06-08] MEDS ORDERED: cefTRIAXone SOD 1GM VIAL IM ONE (13:55)
[2023-06-08] MEDS ORDERED: ONDANSETRON 4MG ORAL DISINTEGRATING TAB PO ONE (13:55)
[2023-06-08] MEDS ORDERED: ACETAMINOPHEN 325 MG TAB PO ONE (14:05)
[2023-06-08 14:35] LABS: BASO % 0.2 % (0.0-1.0); HEMATOCRIT 32.5 % (36.0-47.0); HEMOGLOBIN 10.8 g/dl (12.0-15.5); LYMPH # 0.5 10^3/uL (1.5-5.0); LYMPH % 4.7 % (24.0-44.0); MEAN CORPUSCULAR HEMOGLOBIN 26.5 pg (27.0-33.0); MEAN CORPUSCULAR HGB CONC 33.2 g/dl (32.0-36.5); MEAN CORPUSCULAR VOLUME 79.7 fl (80.0-96.0); MONO # 0.8 10^3/uL (0.0-0.8); NEUTROPHILS # 10.2 10^3/uL (1.5-8.5); NEUTROPHILS % 87.8 % (36.0-66.0); PLATELET COUNT, AUTOMATED 254 10^3/uL (150-450); RED BLOOD COUNT 4.08 10^6/uL (4.00-5.40); WHITE BLOOD COUNT 11.6 10^3/uL (4.0-10.0)
[2023-06-08 14:52] LABS: BLOOD UREA NITROGEN 7 MG/DL (9-23); CALCIUM LEVEL 7.9 MG/DL (8.5-10.1); CARBON DIOXIDE LEVEL 24 MMOL/L (20-31); CHLORIDE LEVEL 104 MMOL/L (98-107); CREATININE FOR GFR 0.62 MG/DL (0.55-1.30); GLOMERULAR FILTRATION RATE > 60.0 (>60); GLUCOSE, FASTING 102 MG/DL (60-100); POTASSIUM SERUM 4.3 MMOL/L (3.5-5.1); SODIUM LEVEL 133 MMOL/L (136-145)
[2023-06-08 15:05] VITALS: BP 113/59; TEMP 102; O2SAT 98
== END 2023-06-08 15:30 | disposition home or self-care (01) ==
LOC: M ED 12:32
DX: N10 Acute pyelonephritis (principal); F17.200 Nicotine dependence, unspecified, uncomplicated; Z79.2 Long term (current) use of antibiotics; Z79.899 Other long term (current) drug therapy
CPT/HCPCS: 80048; 83605; 85025; 96372; 99283; J0696

== ENCOUNTER 2023-08-18 13:00 | Inpatient (IN) | payer BC ==
[~2023-08-18] VITALS: Ht 172.7 cm; Wt 53.8 kg
[2023-08-18 13:47] LABS: HEMATOCRIT 37.4 % (36.0-47.0); HEMOGLOBIN 12.4 g/dl (12.0-15.5); MEAN CORPUSCULAR HEMOGLOBIN 26.2 pg (27.0-33.0); MEAN CORPUSCULAR HGB CONC 33.2 g/dl (32.0-36.5); MEAN CORPUSCULAR VOLUME 79.1 fl (80.0-96.0); PLATELET COUNT, AUTOMATED 346 10^3/uL (150-450); RED BLOOD COUNT 4.73 10^6/uL (4.00-5.40); WHITE BLOOD COUNT 10.4 10^3/uL (4.0-10.0)
[2023-08-18 14:05] LABS: AMPHETAMINES LEVEL URINE NEGATIVE (NEGATIVE); BARBITURATES URINE NEGATIVE (NEGATIVE); BENZODIAZEPINES URINE NEGATIVE (NEGATIVE); CANNABINOIDS URINE NEGATIVE (NEGATIVE); COCAINE METABOLITE URINE NEGATIVE (NEGATIVE); METHADONE URINE NEGATIVE (NEGATIVE); OPIATES URINE NEGATIVE (NEGATIVE); PHENCYCLIDINE URINE NEGATIVE (NEGATIVE)
[2023-08-18 14:07] LABS: ETHYL ALCOHOL (ETHANOL) < 0.003 % (0.000-0.010)
[2023-08-18 14:08] LABS: SALICYLATE LEVEL < 3.0 MG/DL (<30)
[2023-08-18 14:09] LABS: ALBUMIN 3.8 G/DL (3.2-5.2); ALKALINE PHOSPHATASE 51 U/L (46-116); ALT/SGPT 26 U/L (7.0-40); AST/SGOT 19 U/L (<34); BILIRUBIN,DIRECT 0.2 MG/DL (<0.4); BILIRUBIN,TOTAL 0.4 MG/DL (0.3-1.2); BLOOD UREA NITROGEN 11 MG/DL (9-23); CALCIUM LEVEL 9.4 MG/DL (8.5-10.1); CARBON DIOXIDE LEVEL 25 MMOL/L (20-31); CHLORIDE LEVEL 107 MMOL/L (98-107); CREATININE FOR GFR 0.63 MG/DL (0.55-1.30); GLOMERULAR FILTRATION RATE > 60.0 (>60); GLUCOSE, FASTING 97 MG/DL (60-100); POTASSIUM SERUM 4.1 MMOL/L (3.5-5.1); SODIUM LEVEL 137 MMOL/L (136-145)
[2023-08-18 14:12] LABS: HCG, SERUM QUALITATIVE NEGATIVE (NEGATIVE)
[2023-08-18] MEDS ORDERED: HOME MED LIST COMPLETE! XX SCH (15:30)
[2023-08-18] MEDS: OLANZapine ORAL DISINTEGRATING TAB 5MG PO ONE ×3 (16:45→22:49)
[2023-08-19] MEDS ORDERED: MAALOX 30 ML SUSP *UDC PO PRN (13:35)
[2023-08-19] MEDS ORDERED: MOM 30ML SUSPENSION UDC PO PRN (13:35)
[2023-08-19] MEDS ORDERED: ACETAMINOPHEN TAB 650MG DOSE (2X325MG) PO PRN (13:35)
[2023-08-19 15:15] VITALS: BP 122/72; TEMP 98.8; O2SAT 99
[2023-08-19] MEDS: diphenhydrAMINE 25MG CAP PO PRN (16:44)
[2023-08-19] MEDS: OLANZapine ORAL DISINTEGRATING TAB 5MG PO PRN (16:44)
[2023-08-19] MEDS: traZODone 50 MG TAB PO PRN (21:32)
[2023-08-20] MEDS: LORazepam 2 MG TAB PO ONE (11:27)
[2023-08-20] MEDS: diphenhydrAMINE 50MG CAP PO ONE (11:27)
[2023-08-20 18:00] VITALS: BP 106/58; TEMP 98.6
[2023-08-20] MEDS: OLANZapine 5 MG TAB PO SCH (20:40)
[2023-08-21 05:59] VITALS: BP 118/63; TEMP 97.5; O2SAT 100
[2023-08-21] MEDS: OLANZapine ORAL DISINTEGRATING TAB 5MG PO PRN (09:23)
[2023-08-21] MEDS: IBUPROFEN 400MG TAB PO PRN (14:01)
[2023-08-22 06:37] VITALS: BP 126/60; TEMP 98.6; O2SAT 98
[2023-08-22] MEDS: LORazepam 1 MG TAB PO STA (09:52)
[2023-08-22] MEDS: FLUoxetine 10 MG CAP PO SCH (09:52)
[2023-08-22 16:45] VITALS: BP 127/66; TEMP 98.9; O2SAT 98
[2023-08-22] MEDS: PALIPERIDONE 3MG ER TAB (INVEGA) PO SCH (21:17)
[2023-08-23 06:54] VITALS: BP 134/62; TEMP 97.7; O2SAT 100
[2023-08-23] MEDS: TRI LINYAH PO SCH (09:29)
[2023-08-23] MEDS: PALIPERIDONE 6MG ER TAB (INVEGA) PO SCH (12:35)
[2023-08-23 16:34] VITALS: BP 116/62; TEMP 97.7; O2SAT 98
[2023-08-24 06:22] VITALS: BP 105/72; TEMP 97.4; O2SAT 100
[2023-08-24] MEDS: BENZTROPINE 2 MG TAB PO STA (14:48)
[2023-08-24 16:14] VITALS: BP 127/72; TEMP 98.1; O2SAT 99
[2023-08-24] MEDS: BENZTROPINE 1 MG TAB PO SCH (20:38)
[2023-08-25 06:11] VITALS: BP 114/57; TEMP 98.2; O2SAT 99
[2023-08-25] MEDS: PALIPERIDONE 3MG ER TAB (INVEGA) PO SCH (08:47)
[2023-08-25 16:05] VITALS: BP 106/59; TEMP 98.4; O2SAT 100
[2023-08-26 06:25] VITALS: BP 129/59; TEMP 97.5; O2SAT 100
[2023-08-26 18:00] VITALS: BP 133/68; TEMP 97.9
[2023-08-27 06:39] VITALS: BP 108/58; TEMP 97.4; O2SAT 98
[2023-08-27 16:13] VITALS: BP 117/49; TEMP 97.8; O2SAT 100
[2023-08-28 06:57] VITALS: BP 139/78; TEMP 97.5; O2SAT 100
[2023-08-28 18:37] VITALS: BP 131/65; TEMP 97.2
[2023-08-29 06:46] VITALS: BP 109/56; TEMP 97.8; O2SAT 99
[2023-08-29 16:11] VITALS: BP 118/63; TEMP 98.6; O2SAT 100
[2023-08-30 05:50] VITALS: BP 100/52; TEMP 97.8; O2SAT 97
[2023-08-30] MEDS ORDERED: FLUO20CA22 PO (08:32)
[2023-08-30] MEDS ORDERED: TRAZ-252 PO (08:32)
[2023-08-30] MEDS ORDERED: PALI1TAB2 PO (08:32)
== END 2023-08-30 11:00 | disposition home or self-care (01) | DRG 751 ==
LOC: M ED 13:00 → M ED INP 08-19 13:35 → M PSY 08-19 15:15
PROVIDERS: ADMIT Student in an Organized Health Care Education/Training Program; ATTEND Student in an Organized Health Care Education/Training Program
DX: F29 Unspecified psychosis not due to a substance or known physiological condition (principal); F25.0 Schizoaffective disorder, bipolar type; Z91.040 Latex allergy status; Z79.899 Other long term (current) drug therapy

== ENCOUNTER 2023-09-15 18:57 | Emergency (ER) | payer BC, MEDICAID, SELFPAY ==
[~2023-09-15] VITALS: Ht 172.7 cm; Wt 59.1 kg
[~2023-09-15 18:57] MED LIST changes: +TRAZ-252 PO
[2023-09-15 18:58] VITALS: BP 126/58; TEMP 97; O2SAT 97
[2023-09-15] MEDS: DERMABOND TOPICAL SKIN ADHESIVE TOP ONE (19:20)
[2023-09-15] MEDS: BOOSTRIX VACCINE (TETANUS/DIPHTH/ACEL. PERTUSSIS) 0.5ML SYR IM ONE (19:29)
== END 2023-09-15 19:34 | disposition home or self-care (01) ==
LOC: M ED 18:57
DX: S61.212A Laceration without foreign body of right middle finger without damage to nail, initial encounter (principal); W26.8XXA Contact with other sharp object(s), not elsewhere classified, initial encounter; F41.9 Anxiety disorder, unspecified; F32.A Depression, unspecified; F17.200 Nicotine dependence, unspecified, uncomplicated; F10.10 Alcohol abuse, uncomplicated; F20.9 Schizophrenia, unspecified; F43.10 Post-traumatic stress disorder, unspecified; Y92.009 Unspecified place in unspecified non-institutional (private) residence as the place of occurrence of the external cause; Y93.G1 Activity, food preparation and clean up; Y99.9 Unspecified external cause status; Z91.040 Latex allergy status; Z79.899 Other long term (current) drug therapy

== ENCOUNTER 2023-09-17 17:13 | Inpatient (IN) | payer MEDICAID ==
[~2023-09-17] VITALS: Ht 172.7 cm; Wt 55.7 kg
[~2023-09-17 17:13] MED LIST changes: +DOXY-323 PO; -DOXY-443 PO
[2023-09-17 18:39] LABS: HEMATOCRIT 36.6 % (36.0-47.0); HEMOGLOBIN 11.9 g/dl (12.0-15.5); MEAN CORPUSCULAR HEMOGLOBIN 26.2 pg (27.0-33.0); MEAN CORPUSCULAR HGB CONC 32.5 g/dl (32.0-36.5); MEAN CORPUSCULAR VOLUME 80.4 fl (80.0-96.0); PLATELET COUNT, AUTOMATED 359 10^3/uL (150-450); RED BLOOD COUNT 4.55 10^6/uL (4.00-5.40); WHITE BLOOD COUNT 8.9 10^3/uL (4.0-10.0)
[2023-09-17 18:50] LABS: ETHYL ALCOHOL (ETHANOL) < 0.003 % (0.000-0.010)
[2023-09-17 18:51] LABS: SALICYLATE LEVEL < 3.0 MG/DL (<30)
[2023-09-17 18:52] LABS: ALBUMIN 3.6 G/DL (3.2-5.2); ALKALINE PHOSPHATASE 57 U/L (46-116); ALT/SGPT 25 U/L (7.0-40); AST/SGOT 18 U/L (<34); BILIRUBIN,DIRECT 0.2 MG/DL (<0.4); BILIRUBIN,TOTAL 0.7 MG/DL (0.3-1.2); BLOOD UREA NITROGEN 19 MG/DL (9-23); CALCIUM LEVEL 9.4 MG/DL (8.5-10.1); CARBON DIOXIDE LEVEL 22 MMOL/L (20-31); CHLORIDE LEVEL 103 MMOL/L (98-107); CREATININE FOR GFR 0.64 MG/DL (0.55-1.30); GLOMERULAR FILTRATION RATE > 60.0 (>60); GLUCOSE, FASTING 77 MG/DL (60-100); POTASSIUM SERUM 4.2 MMOL/L (3.5-5.1); SODIUM LEVEL 137 MMOL/L (136-145); TOTAL PROTEIN 7.2 G/DL (5.7-8.2)
[2023-09-17 18:53] LABS: THYROID STIMULATING HORMONE 2.303 uIU/ML (0.55-4.78)
[2023-09-17 18:54] LABS: HCG, SERUM QUALITATIVE NEGATIVE (NEGATIVE)
[2023-09-17 23:53] LABS: AMPHETAMINES LEVEL URINE NEGATIVE (NEGATIVE)
[2023-09-17 23:54] LABS: BARBITURATES URINE NEGATIVE (NEGATIVE); BENZODIAZEPINES URINE NEGATIVE (NEGATIVE); CANNABINOIDS URINE NEGATIVE (NEGATIVE); COCAINE METABOLITE URINE NEGATIVE (NEGATIVE); METHADONE URINE NEGATIVE (NEGATIVE); OPIATES URINE NEGATIVE (NEGATIVE); PHENCYCLIDINE URINE NEGATIVE (NEGATIVE)
[2023-09-18] MEDS: OLANZapine ORAL DISINTEGRATING TAB 5MG PO ONE (01:03)
[2023-09-18] MEDS ORDERED: MOM 30ML SUSPENSION UDC PO PRN (02:45)
[2023-09-18] MEDS ORDERED: IBUPROFEN 400MG TAB PO PRN (02:45)
[2023-09-18] MEDS ORDERED: MAALOX 30 ML SUSP *UDC PO PRN (02:45)
[2023-09-18 03:52] VITALS: BP 125/64; TEMP 97.2; O2SAT 95
[2023-09-18 08:22] LABS: IRON (FE) 109 UG/DL (50-170); PERCENT SATURATION 20.3 % (13.2-45.0); TOTAL IRON BINDING CAPACITY 536 UG/DL (250-425)
[2023-09-18 08:24] LABS: FERRITIN 7.7 NG/ML (7.3-270.7)
[2023-09-18 08:25] LABS: VITAMIN B12 LEVEL 303 PG/ML (211-911)
[2023-09-18] MEDS: FERROUS SULFATE 325MG TAB PO SCH (09:00)
[2023-09-18] MEDS ORDERED: PALI1TAB2 PO (09:28)
[2023-09-18] MEDS ORDERED: TRAZ1TAB10 PO (09:28)
[2023-09-18] MEDS ORDERED: HOME MED LIST COMPLETE! XX SCH (09:30)
[2023-09-18] MEDS: diphenhydrAMINE 25MG CAP PO PRN (10:07)
[2023-09-18] MEDS: PALIPERIDONE 6MG ER TAB (INVEGA) PO SCH (10:40)
[2023-09-18] MEDS: LORazepam 1 MG TAB PO SCH (10:41)
[2023-09-18] MEDS: LORazepam 2 MG TAB PO PRN (10:56)
[2023-09-18 18:57] VITALS: BP 103/53; TEMP 97.3
[2023-09-19 06:14] VITALS: BP 125/61; TEMP 97.3; O2SAT 99
[2023-09-19] MEDS: NORGESTIMATE PO SCH (09:00)
[2023-09-19] MEDS: ETHINYL ESTRADIOL PO SCH (09:00)
[2023-09-19 17:56] VITALS: BP 134/68; TEMP 97.8; O2SAT 98
[2023-09-19] MEDS: traZODone 50 MG TAB PO PRN (20:19)
[2023-09-20 06:25] VITALS: BP 109/69; TEMP 97.8; O2SAT 100
[2023-09-20] MEDS: PALIPERIDONE PAL 234MG/1.5ML INJ (INVEGA)(FREE PSY INPT ONLY) IM ONE (17:38)
[2023-09-21 06:45] VITALS: BP 111/52; TEMP 97.8; O2SAT 97
[2023-09-21] MEDS: ACETAMINOPHEN TAB 650MG DOSE (2X325MG) PO PRN (13:38)
[2023-09-21] MEDS: BENZTROPINE 2 MG TAB PO ONE (15:14)
[2023-09-21 15:43] VITALS: BP 120/60; TEMP 97.4; O2SAT 100
[2023-09-22 06:30] VITALS: BP 111/70; TEMP 97.5; O2SAT 98
[2023-09-22 15:44] VITALS: BP 104/58; TEMP 97.8; O2SAT 97
[2023-09-23 06:41] VITALS: BP 99/53; TEMP 98.3; O2SAT 99
[2023-09-23] MEDS: FLUoxetine 20MG CAP PO ONE (10:16)
[2023-09-23 18:00] VITALS: BP 117/55; TEMP 98.6
[2023-09-24 06:49] VITALS: BP 124/54; TEMP 98.7; O2SAT 98
[2023-09-24] MEDS: FLUoxetine 20MG CAP PO SCH (08:53)
[2023-09-24] MEDS: PALIPERIDONE PAL 156MG/1ML INJ(INVEGA)(FREE PSY INPT ONLY) IM ONE (11:36)
[2023-09-24 18:54] VITALS: BP 125/59; TEMP 98.3
[2023-09-25 06:43] VITALS: BP 113/55; TEMP 97.2; O2SAT 100
[2023-09-25] MEDS: BENZTROPINE 1 MG TAB PO SCH (10:14)
[2023-09-25] MEDS: diphenhydrAMINE 50MG/ML VIAL IM STA (10:22)
[2023-09-25 18:28] VITALS: BP 126/64; TEMP 98.1
[2023-09-26 06:28] VITALS: BP 104/79; TEMP 98.1; O2SAT 98
[2023-09-26 18:29] VITALS: BP 134/72; TEMP 97.9
[2023-09-27 06:43] VITALS: BP 89/57; TEMP 99; O2SAT 99
[2023-09-27 11:14] VITALS: BP 133/66
[2023-09-27 16:37] VITALS: BP 115/62; TEMP 98.4; O2SAT 100
[2023-09-28 06:32] VITALS: BP 98/52; TEMP 98.2; O2SAT 99
[2023-09-28] MEDS: PALIPERIDONE 3MG ER TAB (INVEGA) PO SCH (08:28)
[2023-09-28] MEDS ORDERED: PALIPERIDONE 6MG ER TAB (INVEGA) PO SCH (09:00)
[2023-09-28 16:48] VITALS: BP 112/58; TEMP 98.6; O2SAT 99
[2023-09-29 06:16] VITALS: BP 105/56; TEMP 97.3; O2SAT 98
[2023-09-29 16:15] VITALS: BP 116/57; TEMP 98.5; O2SAT 95
[2023-09-30 06:12] VITALS: BP 130/73; TEMP 97.4; O2SAT 97
[2023-09-30] MEDS ORDERED: FERR1TAB8 PO (09:12)
[2023-09-30] MEDS ORDERED: BENZ1TAB5 PO (09:12)
== END 2023-09-30 11:23 | disposition home or self-care (01) | DRG 750 ==
LOC: M ED 17:13 → M ED INP 09-18 02:43 → M PSY 09-18 03:50
PROVIDERS: ADMIT Student in an Organized Health Care Education/Training Program; ATTEND Student in an Organized Health Care Education/Training Program
DX: F25.8 Other schizoaffective disorders (principal); D50.9 Iron deficiency anemia, unspecified; Z91.040 Latex allergy status; Z79.899 Other long term (current) drug therapy

== ENCOUNTER 2023-11-01 07:42 | Emergency (ER) | payer BC, OTHER ==
[~2023-11-01] VITALS: Ht 172.7 cm; Wt 55.0 kg
[~2023-11-01 07:42] MED LIST changes: +BENZ1TAB5 PO; +FERR1TAB8 PO; +FLUO-365 PO; -FLUO20CA22 PO; +ONDA-282 PO; -ONDA4TAB6 PO; +TRAZ1TAB10 PO
[2023-11-01] MEDS ORDERED: OLAN2.5T25 (08:03)
[2023-11-01] MEDS ORDERED: FLUO40CA (08:03)
[2023-11-01] MEDS ORDERED: FERR325T19 (08:03)
[2023-11-01] MEDS ORDERED: BENZ2TAB48 (08:03)
[2023-11-01 09:07] LABS: APPEARANCE, URINE MANUAL HAZY (CLEAR); COLOR, URINE MANUAL YELLOW (YELLOW)
[2023-11-01 09:08] LABS: BILIRUBIN, URINE MANUAL NEGATIVE (NEGATIVE); BLOOD URINE MANUAL POSITIVE (NEGATIVE); GLUCOSE, URINE (UA) MANUAL NEGATIVE (NEGATIVE); KETONE, URINE MANUAL NEGATIVE (NEGATIVE); LEUKOCYTE ESTERASE, URINE MAN POSITIVE (NEGATIVE); NITRITE, URINE MANUAL POSITIVE (NEGATIVE); PROTEIN, URINE MANUAL TRACE mg/dL (NEGATIVE); UROBILINOGEN, URINE MANUAL NORMAL (NORMAL)
[2023-11-01 09:09] LABS: BASO % 0.4 % (0.0-1.0); EOS # 0.2 10^3/uL (0.0-0.5); EOS % 3.1 % (0.0-3.0); HEMATOCRIT 40.1 % (36.0-47.0); HEMOGLOBIN 13.1 g/dl (12.0-15.5); LYMPH # 1.7 10^3/uL (1.5-5.0); LYMPH % 35.6 % (24.0-44.0); MEAN CORPUSCULAR HEMOGLOBIN 27.2 pg (27.0-33.0); MEAN CORPUSCULAR HGB CONC 32.7 g/dl (32.0-36.5); MEAN CORPUSCULAR VOLUME 83.2 fl (80.0-96.0); MONO # 0.5 10^3/uL (0.0-0.8); MONO % 9.4 % (2.0-8.0); NEUTROPHILS # 2.5 10^3/uL (1.5-8.5); NEUTROPHILS % 51.3 % (36.0-66.0); PLATELET COUNT, AUTOMATED 294 10^3/uL (150-450); RED BLOOD COUNT 4.82 10^6/uL (4.00-5.40); WHITE BLOOD COUNT 4.9 10^3/uL (4.0-10.0)
[2023-11-01 09:17] LABS: WBC, URINE 40-50 /hpf (0-3)
[2023-11-01 09:18] LABS: BACTERIA, URINE MOD AMOUNT; HYALINE CAST, URINE NONE SEEN /lpf (0-1); RBC, URINE 30-40 /hpf (0-3); SQUAMOUS EPITHELIAL CELL URINE LARGE AMOUNT /hpf (SMALL AMT)
[2023-11-01 09:19] LABS: MUCUS, URINE SMALL AMOUNT (NEGATIVE)
[2023-11-01 09:23] LABS: HCG, SERUM QUALITATIVE NEGATIVE (NEGATIVE)
[2023-11-01 10:23] LABS: GC DNA AMPLIFICATION NEGATIVE (NEGATIVE)
[2023-11-01 11:45] LABS: INR 1.03; PROTHROMBIN TIME 13.2 SECONDS (12.5-14.5)
[2023-11-01 11:59] LABS: C REACTIVE PROTEIN QUANTITATIV < 0.40 MG/DL (<1.0)
[2023-11-01] MEDS: AZITHROMYCIN 250MG TABLET PO ONE (12:20)
[2023-11-01 12:21] LABS: ALBUMIN 3.6 G/DL (3.2-5.2); ALKALINE PHOSPHATASE 54 U/L (46-116); ALT/SGPT 21 U/L (7.0-40); AST/SGOT 19 U/L (<34); BILIRUBIN,DIRECT 0.1 MG/DL (<0.4); BILIRUBIN,TOTAL 0.4 MG/DL (0.3-1.2); BLOOD UREA NITROGEN 14 MG/DL (9-23); CALCIUM LEVEL 8.8 MG/DL (8.5-10.1); CARBON DIOXIDE LEVEL 24 MMOL/L (20-31); CHLORIDE LEVEL 106 MMOL/L (98-107); CREATININE FOR GFR 0.63 MG/DL (0.55-1.30); GLOMERULAR FILTRATION RATE > 60.0 (>60); GLUCOSE, FASTING 86 MG/DL (60-100); POTASSIUM SERUM 4.4 MMOL/L (3.5-5.1); PROCALCITONIN <0.04 ng/ml; SODIUM LEVEL 137 MMOL/L (136-145); TOTAL PROTEIN 6.6 G/DL (5.7-8.2)
[2023-11-01] MEDS: cefTRIAXone SOD 1 GM in D5W MINI-BAG PLUS 50 ML IV ONE (12:21)
[2023-11-01] MEDS: NS 1,000 ML IV ONE (12:21)
[2023-11-01 13:23] LABS: Trichomonas vaginalis (AMP) NOT DETECTED (NEGATIVE)
[2023-11-01] MEDS ORDERED: CEFD1CAP9 PO (13:40)
[2023-11-01 13:47] LABS: GC DNA AMPLIFICATION NEGATIVE (NEGATIVE)
[2023-11-01 14:16] VITALS: BP 112/55; TEMP 98.2; O2SAT 98
== END 2023-11-01 14:18 | disposition home or self-care (01) ==
LOC: M ED 07:42
DX: N39.0 Urinary tract infection, site not specified (principal); M41.9 Scoliosis, unspecified; F20.9 Schizophrenia, unspecified; F32.A Depression, unspecified; Z91.040 Latex allergy status; Z79.2 Long term (current) use of antibiotics; Z79.52 Long term (current) use of systemic steroids; Z79.899 Other long term (current) drug therapy
CPT/HCPCS: 51701; 76830; 76856; 80048; 80076; 81000; 84145; 84703; 85025; 85610; 86140; 87070; 87077; 87088; 87186; 87205; 87210; 87661; 87810; 87850; 93976; 96365; 99284; J0696

== ENCOUNTER 2023-11-19 14:17 | Inpatient (IN) | payer BC, OTHER ==
[~2023-11-19] VITALS: Ht 172.7 cm; Wt 60.2 kg
[~2023-11-19 14:17] MED LIST changes: +BENZ2TAB48 PO; +CEFD1CAP9 PO; +FERR325T19 PO; +FLUO40CA PO; +OLAN2.5T25 PO
[2023-11-19 15:40] LABS: HEMATOCRIT 37.3 % (36.0-47.0); HEMOGLOBIN 12.3 g/dl (12.0-15.5); MEAN CORPUSCULAR HEMOGLOBIN 27.8 pg (27.0-33.0); MEAN CORPUSCULAR VOLUME 84.2 fl (80.0-96.0); PLATELET COUNT, AUTOMATED 325 10^3/uL (150-450); RED BLOOD COUNT 4.43 10^6/uL (4.00-5.40); WHITE BLOOD COUNT 6.5 10^3/uL (4.0-10.0)
[2023-11-19 16:11] LABS: AMPHETAMINES LEVEL URINE NEGATIVE (NEGATIVE); BARBITURATES URINE NEGATIVE (NEGATIVE); BENZODIAZEPINES URINE NEGATIVE (NEGATIVE); COCAINE METABOLITE URINE NEGATIVE (NEGATIVE); METHADONE URINE NEGATIVE (NEGATIVE); OPIATES URINE NEGATIVE (NEGATIVE)
[2023-11-19 16:12] LABS: CANNABINOIDS URINE NEGATIVE (NEGATIVE); PHENCYCLIDINE URINE NEGATIVE (NEGATIVE)
[2023-11-19 16:14] LABS: ETHYL ALCOHOL (ETHANOL) 0.006 % (0.000-0.010)
[2023-11-19 16:16] LABS: SALICYLATE LEVEL < 3.0 MG/DL (<30)
[2023-11-19 16:18] LABS: THYROID STIMULATING HORMONE 1.182 uIU/ML (0.55-4.78)
[2023-11-19 16:24] LABS: ALBUMIN 3.7 G/DL (3.2-5.2); ALKALINE PHOSPHATASE 60 U/L (46-116); ALT/SGPT 32 U/L (7.0-40); AST/SGOT 27 U/L (<34); BILIRUBIN,DIRECT 0.1 MG/DL (<0.4); BILIRUBIN,TOTAL 0.3 MG/DL (0.3-1.2); BLOOD UREA NITROGEN 14 MG/DL (9-23); CALCIUM LEVEL 8.7 MG/DL (8.5-10.1); CARBON DIOXIDE LEVEL 25 MMOL/L (20-31); CHLORIDE LEVEL 107 MMOL/L (98-107); CREATININE FOR GFR 0.59 MG/DL (0.55-1.30); GLOMERULAR FILTRATION RATE > 60.0 (>60); GLUCOSE, FASTING 116 MG/DL (60-100); POTASSIUM SERUM 4.1 MMOL/L (3.5-5.1); SODIUM LEVEL 139 MMOL/L (136-145); TOTAL PROTEIN 6.6 G/DL (5.7-8.2)
[2023-11-19 16:40] LABS: HCG, SERUM QUALITATIVE NEGATIVE (NEGATIVE)
[2023-11-19] MEDS ORDERED: HOME MED LIST COMPLETE! XX SCH (17:30)
[2023-11-20] MEDS ORDERED: traZODone 50 MG TAB PO PRN (07:25)
[2023-11-20] MEDS: FLUoxetine 20MG CAP PO SCH (09:09)
[2023-11-20] MEDS: BENZTROPINE 2 MG TAB PO SCH (10:02)
[2023-11-20] MEDS ORDERED: MOM 30ML SUSPENSION UDC PO PRN (15:05)
[2023-11-20] MEDS ORDERED: IBUPROFEN 400MG TAB PO PRN (15:05)
[2023-11-20] MEDS ORDERED: MAALOX 30 ML SUSP *UDC PO PRN (15:05)
[2023-11-20] MEDS ORDERED: ACETAMINOPHEN TAB 650MG DOSE (2X325MG) PO PRN (15:05)
[2023-11-20] MEDS: diphenhydrAMINE 25MG CAP PO PRN (17:59)
[2023-11-20] MEDS: OLANZapine ORAL DISINTEGRATING TAB 5MG PO PRN (17:59)
[2023-11-20] MEDS: PALIPERIDONE 3MG ER TAB (INVEGA) PO SCH (20:13)
[2023-11-20] MEDS: traZODone 50 MG TAB PO PRN (20:13)
[2023-11-20] MEDS: OLANZapine 2.5MG TABLET PO SCH (20:13)
[2023-11-20] MEDS ORDERED: PALIPERIDONE 3MG ER TAB (INVEGA) PO SCH (21:00)
[2023-11-20] MEDS ORDERED: OLANZapine 2.5MG TABLET PO SCH (21:00)
[2023-11-21 06:23] VITALS: BP 104/55; TEMP 98.6; O2SAT 98
[2023-11-21] MEDS ORDERED: TRI LINYAH PO SCH (09:00)
[2023-11-21] MEDS: FLUoxetine 20MG CAP PO SCH (09:37)
[2023-11-21] MEDS: BENZTROPINE 2 MG TAB PO SCH (09:37)
[2023-11-21 15:36] VITALS: BP 111/59; TEMP 97.9; O2SAT 98
[2023-11-22] MEDS: PALIPERIDONE 3MG ER TAB (INVEGA) PO SCH (09:10)
[2023-11-22 15:51] VITALS: BP 122/58; TEMP 98.5; O2SAT 100
[2023-11-22] MEDS: TRI LINYAH PO SCH (16:27)
[2023-11-23] MEDS ORDERED: UNRESOLVED PATIENT OWN MED ORDER XX SCH (00:01)
[2023-11-23 06:16] VITALS: BP 109/55; TEMP 98.4; O2SAT 98
[2023-11-24 05:59] VITALS: BP 100/52; TEMP 98.5; O2SAT 98
[2023-11-24 15:49] VITALS: BP 123/68; TEMP 98; O2SAT 100
[2023-11-25 07:03] VITALS: BP 105/55; TEMP 98.7; O2SAT 97
[2023-11-25] MEDS ORDERED: PALIPERIDONE PAL 234MG/1.5ML INJ (INVEGA)(FREE PSY INPT ONLY) IM SCH (12:00)
[2023-11-25] MEDS: PALIPERIDONE PAL 234MG/1.5ML INJ (INVEGA)(FREE PSY INPT ONLY) IM ONE (15:10)
[2023-11-25 18:43] VITALS: BP 133/64; TEMP 98.3
[2023-11-26 06:26] VITALS: BP 110/61; TEMP 97.8; O2SAT 96
[2023-11-26 17:52] VITALS: BP 127/71; TEMP 98.3
[2023-11-27 06:17] VITALS: BP 109/51; TEMP 98; O2SAT 98
[2023-11-27 18:16] VITALS: BP 125/65; TEMP 98.2
[2023-11-28 06:17] VITALS: BP 117/63; TEMP 98.8; O2SAT 99
[2023-11-28] MEDS ORDERED: TRAZ1TAB10 PO (09:18)
[2023-11-28] MEDS ORDERED: FLUO40CA PO (09:18)
[2023-11-28] MEDS ORDERED: OLAN2.5T25 PO (09:18)
[2023-11-28] MEDS ORDERED: INVE234I IM (09:19)
[2023-11-28] MEDS ORDERED: PALIPERIDONE PAL 156MG/1ML INJ(INVEGA)(FREE PSY INPT ONLY) IM ONE ×2 (10:10→12:00)
[2023-11-28] MEDS: PALIPERIDONE PAL 156MG/1ML INJ(INVEGA)(FREE PSY INPT ONLY) IM ONE (12:06)
[2023-11-29] MEDS ORDERED: BENZ2TAB48 PO (13:59)
== END 2023-11-28 12:56 | disposition home or self-care (01) | DRG 750 ==
LOC: M ED 14:17 → M ED INP 11-20 15:02 → M PSY 11-20 17:03
PROVIDERS: ADMIT Student in an Organized Health Care Education/Training Program; ATTEND Student in an Organized Health Care Education/Training Program
DX: F25.0 Schizoaffective disorder, bipolar type (principal); M41.9 Scoliosis, unspecified; Z79.899 Other long term (current) drug therapy; Z91.040 Latex allergy status; D50.9 Iron deficiency anemia, unspecified

== ENCOUNTER 2024-01-19 15:24 | Emergency (ER) | payer BC, MEDICAID ==
[~2024-01-19] VITALS: Ht 172.7 cm; Wt 67.7 kg
[~2024-01-19 15:24] MED LIST changes: +INVE234I IM
[2024-01-19] MEDS ORDERED: PALI1TAB2 (15:32)
[2024-01-19] MEDS: MECLIZINE 25 MG TABLET PO ONE (17:03)
[2024-01-19] MEDS: NS 1,000 ML IV ONE (17:03)
[2024-01-19 17:15] LABS: BASO % 0.4 % (0.0-1.0); EOS # 0.2 10^3/uL (0.0-0.5); EOS % 1.7 % (0.0-3.0); HEMATOCRIT 35.1 % (36.0-47.0); HEMOGLOBIN 11.5 g/dl (12.0-15.5); LYMPH # 2.6 10^3/uL (1.5-5.0); LYMPH % 27.6 % (24.0-44.0); MEAN CORPUSCULAR HEMOGLOBIN 28.3 pg (27.0-33.0); MEAN CORPUSCULAR HGB CONC 32.8 g/dl (32.0-36.5); MEAN CORPUSCULAR VOLUME 86.2 fl (80.0-96.0); MONO # 0.7 10^3/uL (0.0-0.8); MONO % 7.6 % (2.0-8.0); NEUTROPHILS % 62.2 % (36.0-66.0); PLATELET COUNT, AUTOMATED 297 10^3/uL (150-450); RED BLOOD COUNT 4.07 10^6/uL (4.00-5.40); WHITE BLOOD COUNT 9.6 10^3/uL (4.0-10.0)
[2024-01-19 17:41] LABS: BLOOD UREA NITROGEN 18 MG/DL (9-23); CALCIUM LEVEL 8.8 MG/DL (8.5-10.1); CARBON DIOXIDE LEVEL 24 MMOL/L (20-31); CHLORIDE LEVEL 108 MMOL/L (98-107); CREATININE FOR GFR 0.57 MG/DL (0.55-1.30); GLOMERULAR FILTRATION RATE > 60.0 (>60); GLUCOSE, FASTING 87 MG/DL (60-100); SODIUM LEVEL 137 MMOL/L (136-145)
[2024-01-19 17:48] LABS: HCG, SERUM QUALITATIVE NEGATIVE (NEGATIVE)
[2024-01-19 18:09] VITALS: BP 113/60; TEMP 96.6; O2SAT 99
[2024-01-19] MEDS ORDERED: MECL-209 PO (18:14)
== END 2024-01-19 18:26 | disposition home or self-care (01) ==
LOC: M ED 15:24
DX: H81.4 Vertigo of central origin (principal); F43.10 Post-traumatic stress disorder, unspecified; E88.9 Metabolic disorder, unspecified; F20.9 Schizophrenia, unspecified; F17.200 Nicotine dependence, unspecified, uncomplicated; Z91.040 Latex allergy status; Z79.899 Other long term (current) drug therapy

== ENCOUNTER 2024-04-14 22:19 | Emergency (ER) | payer BC, MEDICAID ==
[~2024-04-14] VITALS: Ht 172.7 cm; Wt 97.7 kg
[~2024-04-14 22:19] MED LIST changes: -DOXY-323 PO; +DOXY-441 PO; +MECL-209 PO; -OLAN2.5T25 PO; +OLAN2.5T53 PO; +PALI1TAB2
[2024-04-14 22:24] VITALS: TEMP 97.9
[2024-04-15 01:00] VITALS: O2SAT 98
[2024-04-15 01:01] VITALS: BP 124/48
[2024-04-15] MEDS ORDERED: HYDR-3363 PO (01:03)
== END 2024-04-15 01:17 | disposition home or self-care (01) ==
LOC: M ED 22:19
DX: R40.4 Transient alteration of awareness (principal); F17.200 Nicotine dependence, unspecified, uncomplicated; E88.9 Metabolic disorder, unspecified; F41.9 Anxiety disorder, unspecified; F32.A Depression, unspecified; F20.9 Schizophrenia, unspecified; Z91.040 Latex allergy status; Z79.899 Other long term (current) drug therapy

== ENCOUNTER 2024-04-29 10:29 | Emergency (ER) | payer BC, MEDICAID ==
[~2024-04-29] VITALS: Ht 172.7 cm; Wt 78.4 kg
[~2024-04-29 10:29] MED LIST changes: +HYDR-3363 PO
[2024-04-29 13:18] VITALS: BP 108/53; TEMP 97.6; O2SAT 98
== END 2024-04-29 13:19 | disposition home or self-care (01) ==
LOC: M ED 10:29
DX: S00.10XA Contusion of unspecified eyelid and periocular area, initial encounter (principal); W01.198A Fall on same level from slipping, tripping and stumbling with subsequent striking against other object, initial encounter; F43.10 Post-traumatic stress disorder, unspecified; F41.9 Anxiety disorder, unspecified; F20.9 Schizophrenia, unspecified; G40.909 Epilepsy, unspecified, not intractable, without status epilepticus; F17.200 Nicotine dependence, unspecified, uncomplicated; Z91.040 Latex allergy status; Y92.9 Unspecified place or not applicable; Y93.89 Activity, other specified; Y99.0 Civilian activity done for income or pay; Z79.899 Other long term (current) drug therapy

== ENCOUNTER 2024-06-02 12:14 | Emergency (ER) | payer BC, MEDICAID ==
[~2024-06-02] VITALS: Ht 172.7 cm; Wt 72.7 kg
[2024-06-02 13:21] LABS: BASO % 0.2 % (0.0-1.0); EOS # 0.1 10^3/uL (0.0-0.5); HEMATOCRIT 37.6 % (36.0-47.0); HEMOGLOBIN 12.6 g/dl (12.0-15.5); LYMPH # 1.9 10^3/uL (1.5-5.0); LYMPH % 19.9 % (24.0-44.0); MEAN CORPUSCULAR HGB CONC 33.5 g/dl (32.0-36.5); MEAN CORPUSCULAR VOLUME 83.6 fl (80.0-96.0); MONO # 0.5 10^3/uL (0.0-0.8); MONO % 5.8 % (2.0-8.0); NEUTROPHILS # 6.8 10^3/uL (1.5-8.5); NEUTROPHILS % 72.8 % (36.0-66.0); PLATELET COUNT, AUTOMATED 310 10^3/uL (150-450); WHITE BLOOD COUNT 9.4 10^3/uL (4.0-10.0)
[2024-06-02 13:44] LABS: ALBUMIN 3.3 G/DL (3.2-5.2); ALKALINE PHOSPHATASE 72 U/L (35-104); ALT/SGPT 23 U/L (7.0-40); AST/SGOT 19 U/L (<34); BILIRUBIN,DIRECT < 0.1 MG/DL (<0.4); BILIRUBIN,TOTAL 0.2 MG/DL (0.3-1.2); BLOOD UREA NITROGEN 10 MG/DL (9-23); CALCIUM LEVEL 9.3 MG/DL (8.5-10.1); CARBON DIOXIDE LEVEL 26 MMOL/L (20-31); CHLORIDE LEVEL 105 MMOL/L (98-107); CREATININE FOR GFR 0.63 MG/DL (0.55-1.30); GLOMERULAR FILTRATION RATE > 60.0 (>60); GLUCOSE, FASTING 85 MG/DL (60-100); MAGNESIUM LEVEL 1.8 MG/DL (1.8-2.4); POTASSIUM SERUM 4.2 MMOL/L (3.5-5.1); SODIUM LEVEL 138 MMOL/L (136-145); TOTAL PROTEIN 6.9 G/DL (5.7-8.2)
[2024-06-02 14:20] LABS: AMPHETAMINES LEVEL URINE NEGATIVE (NEGATIVE)
[2024-06-02 14:21] LABS: BARBITURATES URINE NEGATIVE (NEGATIVE); BENZODIAZEPINES URINE NEGATIVE (NEGATIVE); CANNABINOIDS URINE NEGATIVE (NEGATIVE); COCAINE METABOLITE URINE NEGATIVE (NEGATIVE); METHADONE URINE NEGATIVE (NEGATIVE); OPIATES URINE NEGATIVE (NEGATIVE); PHENCYCLIDINE URINE NEGATIVE (NEGATIVE)
[2024-06-02] MEDS ORDERED: EEG XX (14:32)
[2024-06-02 14:59] VITALS: BP 125/58; TEMP 97.4; O2SAT 98
== END 2024-06-02 15:07 | disposition home or self-care (01) ==
LOC: EDBD 12:14 → M ED 12:14
DX: R56.9 Unspecified convulsions (principal); F31.9 Bipolar disorder, unspecified; F20.9 Schizophrenia, unspecified; F32.A Depression, unspecified; F17.200 Nicotine dependence, unspecified, uncomplicated; Z79.899 Other long term (current) drug therapy; Z91.040 Latex allergy status

== ENCOUNTER → 2024-06-04 | Outpatient (REF) | payer BC, MEDICAID ==
[~2024-06-04] MED LIST changes: +EEG XX
[2024-06-04 18:31] LABS: HEMATOCRIT 40.4 % (36.0-47.0); HEMOGLOBIN 13.3 g/dl (12.0-15.5); MEAN CORPUSCULAR HGB CONC 32.9 g/dl (32.0-36.5); MEAN CORPUSCULAR VOLUME 85.1 fl (80.0-96.0); PLATELET COUNT, AUTOMATED 369 10^3/uL (150-450); RED BLOOD COUNT 4.75 10^6/uL (4.00-5.40); WHITE BLOOD COUNT 9.8 10^3/uL (4.0-10.0)
[2024-06-04 18:57] LABS: ALBUMIN 3.5 G/DL (3.2-5.2); ALKALINE PHOSPHATASE 73 U/L (35-104); ALT/SGPT 22 U/L (7.0-40); AST/SGOT 20 U/L (<34); BILIRUBIN,TOTAL 0.2 MG/DL (0.3-1.2); BLOOD UREA NITROGEN 14 MG/DL (9-23); CALCIUM LEVEL 10.3 MG/DL (8.5-10.1); CARBON DIOXIDE LEVEL 25 MMOL/L (20-31); CHLORIDE LEVEL 104 MMOL/L (98-107); CREATININE FOR GFR 0.62 MG/DL (0.55-1.30); GLOMERULAR FILTRATION RATE > 60.0 (>60); GLUCOSE, FASTING 88 MG/DL (60-100); POTASSIUM SERUM 5.2 MMOL/L (3.5-5.1); SODIUM LEVEL 138 MMOL/L (136-145); THYROID STIMULATING HORMONE 1.269 uIU/ML (0.55-4.78); TOTAL PROTEIN 7.4 G/DL (5.7-8.2)
== END ==
LOC: M LAB REF 16:21
PROVIDERS: ATTEND Student in an Organized Health Care Education/Training Program
DX: Z00.01 Encounter for general adult medical examination with abnormal findings (principal)

== ENCOUNTER → 2024-06-10 | Outpatient (CLI) | payer BC, MEDICAID | LOC: M SLEEP 08:17 | PROVIDERS: ATTEND Emergency Medicine | DX: R56.9 Unspecified convulsions (principal) ==

== ENCOUNTER 2024-06-29 14:15 | Emergency (ER) | payer BC, MEDICAID ==
[2024-06-29 15:27] LABS: ALBUMIN 3.4 G/DL (3.2-5.2); ALKALINE PHOSPHATASE 80 U/L (35-104); ALT/SGPT 20 U/L (7.0-40); AST/SGOT 14 U/L (<34); BILIRUBIN,DIRECT < 0.1 MG/DL (<0.4); BILIRUBIN,TOTAL 0.2 MG/DL (0.3-1.2); BLOOD UREA NITROGEN 13 MG/DL (9-23); CALCIUM LEVEL 8.9 MG/DL (8.5-10.1); CARBON DIOXIDE LEVEL 22 MMOL/L (20-31); CHLORIDE LEVEL 108 MMOL/L (98-107); CREATININE FOR GFR 0.68 MG/DL (0.55-1.30); GLOMERULAR FILTRATION RATE > 60.0 (>60); GLUCOSE, FASTING 91 MG/DL (60-100); POTASSIUM SERUM 3.8 MMOL/L (3.5-5.1); SODIUM LEVEL 142 MMOL/L (136-145); TOTAL PROTEIN 7.1 G/DL (5.7-8.2)
[2024-06-29 15:35] LABS: BASO % 0.2 % (0.0-1.0); EOS # 0.1 10^3/uL (0.0-0.5); HEMATOCRIT 40.1 % (36.0-47.0); HEMOGLOBIN 12.9 g/dl (12.0-15.5); LYMPH # 1.7 10^3/uL (1.5-5.0); LYMPH % 17.5 % (24.0-44.0); MEAN CORPUSCULAR HGB CONC 32.2 g/dl (32.0-36.5); MEAN CORPUSCULAR VOLUME 83.9 fl (80.0-96.0); MONO # 0.6 10^3/uL (0.0-0.8); MONO % 5.5 % (2.0-8.0); NEUTROPHILS # 7.5 10^3/uL (1.5-8.5); NEUTROPHILS % 75.5 % (36.0-66.0); PLATELET COUNT, AUTOMATED 282 10^3/uL (150-450); RED BLOOD COUNT 4.78 10^6/uL (4.00-5.40)
[2024-06-29 15:43] LABS: HCG, SERUM QUALITATIVE NEGATIVE (NEGATIVE)
[2024-06-29 15:45] LABS: KETONE, URINE AUTO RFX TRACE mg/dL (NEGATIVE); LEUKOCYTE ESTERASE UR AUTO RFX NEGATIVE (NEGATIVE); MUCUS, URINE RFX SMALL (NEGATIVE); NITRITE, URINE AUTO RFX NEGATIVE (NEGATIVE); RBC, URINE AUTO RFX 1 /HPF (0-3); SQUAM EPITHELIAL CELL UR AURFX 8 /HPF (0-6); WBC, URINE AUTO RFX 2 /HPF (0-3)
[2024-06-29 16:02] LABS: AMPHETAMINES LEVEL URINE NEGATIVE (NEGATIVE); BARBITURATES URINE NEGATIVE (NEGATIVE); BENZODIAZEPINES URINE NEGATIVE (NEGATIVE); CANNABINOIDS URINE NEGATIVE (NEGATIVE); COCAINE METABOLITE URINE NEGATIVE (NEGATIVE); METHADONE URINE NEGATIVE (NEGATIVE); OPIATES URINE NEGATIVE (NEGATIVE); PHENCYCLIDINE URINE NEGATIVE (NEGATIVE)
[2024-06-29] MEDS: BENZTROPINE 1 MG TAB PO ONE (16:37)
[2024-06-29] MEDS: diphenhydrAMINE 50MG/ML VIAL IV STA (16:38)
[2024-06-29] MEDS ORDERED: BENZ1TAB5 PO (17:46)
[2024-06-29 18:00] VITALS: BP 114/52; TEMP 97.5; O2SAT 97
== END 2024-06-29 18:15 | disposition home or self-care (01) ==
LOC: EDBD 14:15 → M ED 14:15
DX: G24.9 Dystonia, unspecified (principal); G25.9 Extrapyramidal and movement disorder, unspecified; I45.10 Unspecified right bundle-branch block; I45.81 Long QT syndrome; Z91.040 Latex allergy status; Z79.899 Other long term (current) drug therapy
CPT/HCPCS: 70450; 71045; 80048; 80076; 80307; 81001; 84703; 85025; 93005; 94760; 96374; 99284; J1200

== ENCOUNTER → 2025-03-22 | Outpatient (CLI) | payer BC, MEDICAID ==
[~2025-03-22] MED LIST changes: +PROZ10CA11 PO; -PROZ10CA7 PO; -PROZ20CA11 PO; +PROZ20CA25 PO; +SULF-7 PO; -SULF1TAB23 PO
[2025-03-22 13:53] LABS: ALT/SGPT 19 U/L (7.0-40); AST/SGOT 18 U/L (<34); CALCIUM LEVEL 9.0 MG/DL (8.5-10.1); CARBON DIOXIDE LEVEL 25 MMOL/L (20-31); CHLORIDE LEVEL 106 MMOL/L (98-107); CREATININE FOR GFR 0.76 MG/DL (0.55-1.30); GLOMERULAR FILTRATION RATE > 90.0 (>60); POTASSIUM SERUM 4.5 MMOL/L (3.5-5.1); SODIUM LEVEL 137 MMOL/L (136-145)
== END ==
LOC: M PLALAB 11:33
PROVIDERS: ATTEND Student in an Organized Health Care Education/Training Program
DX: E66.811 Obesity, class 1 (principal); Z68.34 Body mass index [BMI] 34.0-34.9, adult